=== PATIENT | male | born 1955 | race Caucasian/White ===

== ENCOUNTER 2018-03-18 15:59 | Inpatient (IN) | payer MEDICARE, OTHER ==
[~2018-03-18] VITALS: Ht 167.6 cm; Wt 61.2 kg
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
[2018-03-18] MEDS ORDERED: LORAZEPAM 0.5 MG TABLET PO PRN (23:30)
[2018-03-18] MEDS ORDERED: MAGNESIUM HYDROXIDE 30 ML UDC PO PRN (23:30)
[2018-03-18] MEDS ORDERED: MAG HYDROX/AL HYDROX/SIMETH 30 ML UDC PO PRN (23:30)
[2018-03-18] MEDS ORDERED: ACETAMINOPHEN 325 MG TABLET PO PRN (23:30)
--- NOTE | 2018-03-19 04:16 | NUR ---
MRSA SCREEN DONE
[2018-03-19 08:01] LABS: CHOLESTEROL 162 mg/dL (<200); HDL CHOLESTEROL 94 mg/dL (40-60); LDL 57 mg/dL (0-99); TRIGLYCERIDES 86 mg/dL (30-150)
[2018-03-19 08:03] LABS: ALBUMIN 3.5 g/dL (3.4-5.0); BILIRUBIN,TOTAL 2.4 mg/dL (0.2-1.0); CALCIUM, SERUM 9.1 mg/dL (8.5-10.1); POTASSIUM 3.7 mmol/L (3.5-5.1); TOTAL PROTEIN, SERUM 8.4 g/dL (6.4-8.2)
[2018-03-19 08:22] VITALS: BP 147/76
--- NOTE | 2018-03-19 08:31 | NUR ---
GPS/RN-NOTES NOTED PATIENT UNCOOPERATIVE WITH AGGRESSIVE BEHAVIOR INSISTING TO WALK UNASSISTED, PATIENT HAD UNSTEADY GAIT. OFFERED ATIVAN AND AGREES. ATIVAN 0.5MG P.O GIVEN PRN ORDER. WILL CONT. MONITORING FOR SAFETY AND BEHAVIOR.
[2018-03-19 09:48] LABS: BASOPHILS % (AUTO) 0.5 % (0.0-2.0); EOSINOPHILS % (AUTO) 0.2 % (0.0-6.0); HEMATOCRIT 38 % (39-51); HEMOGLOBIN 13.1 g/dL (13.5-17.5); LYMPHOCYTES # (AUTO) 2.1 /CMM (0.8-4.8); LYMPHOCYTES % (AUTO) 28.3 % (20.0-44.0); MEAN CORPUSCULAR HGB CONC 34 g/dl (31.0-36.0); MEAN CORPUSCULAR VOLUME 111 fL (80-96); MONOCYTES # (AUTO) 0.5 /CMM (0.1-1.30); MONOCYTES % (AUTO) 6.5 % (2.0-12.0); NEUTROPHILS # (AUTO) 4.7 /CMM (1.8-8.9); NEUTROPHILS % (AUTO) 64.5 % (43.0-81.0); PLATELET COUNT (AUTO) 89 /CMM (150-450); RDW COEFFICIENT OF VARIATION 15.2 (11.5-15.0); RED BLOOD CELL COUNT(AUTO) 3.45 MIL/uL (4.5-6.0); WHITE BLOOD COUNT (AUTO) 7.3 K/uL (4.3-11.0)
[2018-03-19 11:54] LABS: LYMPHOCYTES % (MANUAL) 28 % (16-48); MONOCYTES % (MANUAL) 5 % (0-11.0); NEUTROPHILS % (MANUAL) 67 (42-76)
[2018-03-19] MEDS: GABAPENTIN 100 MG CAPSULE PO SCH ×2 (13:11→16:12)
[2018-03-19] MEDS: QUETIAPINE FUMARATE 25 MG TABLET PO SCH ×2 (13:11→16:12)
[2018-03-19] MEDS: LORAZEPAM 0.5 MG TABLET PO PRN ×2 (15:07→23:34)
--- NOTE | 2018-03-19 15:16 | NUR ---
GPS/RN-NOTES NOTED PATIENT WITH AGGRESSIVE BEHAVIOR INSISTING TO WALK AND GO HOME. REDIRECTED PATIENT AND OFFERED ATIVAN AND AGREES. ATIVAN 1MG P.O GIVEN PRN ORDER. WILL CONT. ON 1:1 MONITORING FOR SAFETY AND BEHAVIOR.
[2018-03-19 16:14] VITALS: BP 156/86
[2018-03-19 20:28] VITALS: BP 128/86
[2018-03-19] MEDS: TEMAZEPAM 7.5 MG CAPSULE PO PRN (21:55)
--- NOTE | 2018-03-19 23:34 | NUR ---
GPS RN NOTES: PATIENT IS VERY ANXIOUS AND RESTLESS. VSS. ADMINISTERED ATIVAN 1MG PO ORDERED. WILL CONTINUE TO MONITOR FOR SAFETY AND BEHAVIOR.
[2018-03-20] MEDS: QUETIAPINE FUMARATE 25 MG TABLET PO SCH ×3 (08:27→20:33)
[2018-03-20] MEDS: GABAPENTIN 100 MG CAPSULE PO SCH ×4 (08:27→19:00)
[2018-03-20 09:11] VITALS: BP 137/95
[2018-03-20 09:12] VITALS: BP_SYST 100; BP_SYST 137; BP_DIAS 69; BP_DIAS 95
--- NOTE | 2018-03-20 11:48 | NUR ---
AIDEN contacted Haley supervisor paint department at [facility] [phone] to discuss pts hold and pts access to firearm. Haley stated that [place] [employer] is aware of pts report of a gun at home and needed warrant to enter home and access gun. Pt did not disclose the location of the firearm and Haley asked SW to ask pt where gun was located. Haely also stated that [place] [facility] [facility] would assist with transportation home.
--- NOTE | 2018-03-20 11:59 | NUR ---
WOUND CARE CONSULT: PT REFUSED ASSESSMENT. PT VERY AGITATED. PER NURSING STAFF, PT IS VERY UNSTABLE ON HIS FEET AND IS INCONTINENT. ALL SKIN PROTECTION RECOMMENDATIONS MADE AND DISCUSSED WITH NURSING STAFF. CURRENT FIONA SCORE IS 15.
[2018-03-20] MEDS ORDERED: Z GUARD REMEDY 2 OZ OINT TP PRN (12:30)
[2018-03-20] MEDS: Z GUARD REMEDY 2 OZ OINT TP SCH (12:30)
[2018-03-20 16:00] VITALS: BP 130/75
[2018-03-20] MEDS ORDERED: QUETIAPINE FUMARATE 25 MG TABLET PO PRN (19:00)
[2018-03-20 19:57] VITALS: BP 130/70
[2018-03-20 20:00] VITALS: BP 130/70
[2018-03-20] MEDS: TEMAZEPAM 7.5 MG CAPSULE PO PRN (22:25)
--- NOTE | 2018-03-21 03:21 | NUR ---
TEMAZEPAM ADMINSTERED AT 2225 WITH MINIMUM EFFECT. PATIENT HAS BEEN AWAKE THE WHOLE NIGHT WITH VISUAL HALLUCINATION. NO INDICATION OF DANGER TO SELF OR OTHER. HE IS IN THE DINING ROOM, WITH HIS CLOTHES OFF, CONSTANTLY DESCRIBING PRESENCE OF PEOPLE IN THE ROOM, HOWEVER HE IS CALM AND INTERACTIVE
[2018-03-21 08:20] VITALS: BP 114/65
[2018-03-21] MEDS: QUETIAPINE FUMARATE 25 MG TABLET PO SCH ×4 (08:35→17:00)
[2018-03-21] MEDS: GABAPENTIN 100 MG CAPSULE PO SCH ×5 (08:35→22:00)
[2018-03-21] MEDS: Z GUARD REMEDY 2 OZ OINT TP SCH (08:38)
--- NOTE | 2018-03-21 11:47 | NUR ---
INITIAL DISCHARGE NOTE: Pt wants to return home to [address] [place] [address] [phone]. However, SW will assess for placement. SW will help form a safe and proper discharge in collaboration with .
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
[2018-03-21] MEDS ORDERED: QUETIAPINE FUMARATE 25 MG TABLET PO PRN (13:30)
[2018-03-21] MEDS: LORAZEPAM 0.5 MG TABLET PO PRN (13:58)
--- NOTE | 2018-03-21 13:58 | NUR ---
GPS/RN PATIENT IS AGITATED,EXTREMELY ANXIOUS, ADMINISTERED ATIVAN 1 MG, WILL CONTINUE TO MONITOR.
[2018-03-21 16:00] VITALS: BP 125/60
--- NOTE | 2018-03-21 18:00 | NUR ---
GPS/RN PATIENT REFUSED GABAPENTIN 300 MG AND SEROQUEL 50 MG X 3, STATED "I JUST WANT TO SLEEP" EXPLAINED RISKS AND BENEFITS, WILL CONTINUE TO MONITOR. Addendum: 03/21/18 at 1818 by PIETRO STROUD RN WILL CONTINUE TO ENCOURAGE TO COMPLY WITH MD REGIMEN
[2018-03-21 20:13] VITALS: BP 115/54
[2018-03-21] MEDS ORDERED: QUETIAPINE FUMARATE 100 MG TABLET PO SCH (22:00)
[2018-03-22 08:00] VITALS: BP 102/58
[2018-03-22] MEDS: GABAPENTIN 100 MG CAPSULE PO SCH ×3 (08:51→16:19)
[2018-03-22] MEDS: QUETIAPINE FUMARATE 25 MG TABLET PO SCH ×3 (08:52→16:19)
[2018-03-22] MEDS: Z GUARD REMEDY 2 OZ OINT TP SCH (09:04)
--- NOTE | 2018-03-22 10:30 | NUR ---
SW received a phone call from Pts friend Michaela [phone] stating that she believed pt was missing. SW notified pts friend that no emergency contact was provided for pt and also pt was unable to give names and phone numbers of friends/family. Pts friend stated that pt lives in apartment alone with his dog. Pts friend stated that pt lives in a supportive housing unit and is connected to a lot of resources. Pts friend provided SW with apartment managers name Debra [phone]. SW asked pts friend if she has information regarding pts and she stated all she knew was that pts was extremely ill. SW also asked pts friend if she knew if pt had a gun at home pts friend responded with "No, I don't believe he has one."
--- NOTE | 2018-03-22 11:45 | NUR ---
GPS/RN-NOTES PATIENT REPRESENT HIMSELF TO COURT HEARING TODAY AND WAS RELEASED BY COURT . PER DR. MARIA SHE ADVISED PATIENT FOR VOLUNTARY STATUS BUT PATIENT REFUSED AND INSIST OF GOING HOME. THEREFORE PATIENT SIGN AGAINST MEDICAL ADVISE PAPER. AIDEN ARRANGED TRANSPORTATION AT [facility]. AIDEN ALSO CONTACTED PT. FRIEND AZUL ).
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
--- NOTE | 2018-03-22 14:12 | NUR ---
DISCHARGE NOTE: Pt will be discharging after Certification Review Hearing Decal Transferrer Hetal Soto did not uphold his 5250. Pt will be discharging at 3:00pm via [facility] and going home to [address] [place] [address] [phone] . Pts mood and affect was agitated, anxious, delusional, and confused. Pt denied suicidal/homicidal ideations and denied visual/auditory hallucinations. Pts friend Michaela [phone] was notified and agreed to discharge plan. Pt has a follow up appointment with [facility] [address], [place] [address] P:[phone] F: [phone] on Wednesday March 28, 2018 at 12:45pm. Pt was encouraged to schedule follow up appointment with Locomotive Inspector Dr. Devonte Sykes [address] [place] [address] . The multidisciplinary exitcare form was done, printed, signed, and given to the patient. Addendum: 03/22/18 at 1506 by REGAN WOLFE Pt has a history of substance abuse and refused substance abuse intervention and referrals. However, AIDEN provided pt with referral to [facility] [address] walk in hours for intake 8:30 AM - 5:00 PM, [facility] [address] [facility] walk in hours for intake 9:00 AM - 5:00 PM, and Detoxification [facility] [place] [address] pt was encouraged to call the 24hr Help Line for immediate substance abuse treatment.
--- NOTE | 2018-03-22 14:39 | NUR ---
AIDEN called [facility] [phone] to report pt for self-neglect. AIDEN stated to APS that pt was being discharged today home and was refusing medication and was confused, delusional, disoriented, and was unable to provide SW with emergency contacts. AIDEN faxed SOC 341 Form to Rayna Concrete Pouring Supervisor at [phone].
--- NOTE | 2018-03-22 14:52 | NUR ---
Pt has a history of substance abuse and refused substance abuse intervention and referrals. However, SW provided pt with referral to [facility] [address] [facility] walk in hours for intake 8:30 AM - 5:00 PM, [facility] [address] walk in hours for intake 9:00 AM - 5:00 PM, and Detoxification [facility] [place] [address] pt was encouraged to call the 24hr Help Line for immediate substance abuse treatment.
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
[2018-03-22 16:10] VITALS: BP 111/58
--- NOTE | 2018-03-22 16:22 | NUR ---
pt represented himself at a court hearing today. pt convince hse advisor to break 5250 involuntary hold. per mariusz, he does not meet criteria to be put on a involuntary hold. pt to be discharge today. Dr. Castillo aware of courts decision. Dr. Castillo and primary RN spoke to patient in regards to signing in voluntary status to complete his treatment and to properly arrange proper placement but he insist that he has a plan of care and proper placement. Pt will go AMA instead. Pt aware and understood the risk of leaving against medical advice. AMA formed signed. He is going back to home to [place]. Pt is alert oriented x 2 and ambulatory. vital sign stable. no acute distress noted. denies s/i and/or h/i at time of discharge. refuse skin assessment and pictures. refuse to sign aftercare instruction. belongings returned. pt picked up by his friend, hay. pt left in stable condition.
== END 2018-03-22 16:00 | disposition left against medical advice (07) | DRG 885 ==
LOC: GPS 22:47
PROVIDERS: ADMIT Psychiatry & Neurology Psychosomatic Medicine; ATTEND Hospitalist
DX: F23 Brief psychotic disorder (principal); F03.91 Unspecified dementia, unspecified severity, with behavioral disturbance; D64.9 Anemia, unspecified; F32.9 Major depressive disorder, single episode, unspecified; F41.9 Anxiety disorder, unspecified; Z73.6 Limitation of activities due to disability
CPT/HCPCS: 36415; 80053-TC; 80061-TC; 85025-TC; 87081-TC; 97116-TC; 97530-TC